=== PATIENT | female | born 1970 | race American Indian/Alaskan Native ===

== ENCOUNTER 2022-01-11 17:27 | Emergency (ER) | payer OTHER ==
[2022-01-12 05:53] VITALS: BP 142/83
== END 2022-01-13 07:48 | disposition left against medical advice (07) ==
LOC: ED 17:27
DX: E86.0 Dehydration (principal); Z53.21 Procedure and treatment not carried out due to patient leaving prior to being seen by health care provider

== ENCOUNTER 2022-01-13 00:05 | Emergency (ER) | payer SELFPAY ==
[2022-01-13 00:30] VITALS: BP 147/91
== END 2022-01-14 07:39 | disposition left against medical advice (07) ==
LOC: ED 01-14 00:05
DX: R42 Dizziness and giddiness (principal); R52 Pain, unspecified; R55 Syncope and collapse; Z53.21 Procedure and treatment not carried out due to patient leaving prior to being seen by health care provider

== ENCOUNTER 2022-02-01 21:07 | Emergency (ER) | payer SELFPAY ==
[2022-02-02 00:15] VITALS: BP 139/87
== END 2022-02-03 10:00 | disposition left against medical advice (07) ==
LOC: ED 21:07
DX: M54.2 Cervicalgia (principal); Z53.21 Procedure and treatment not carried out due to patient leaving prior to being seen by health care provider

== ENCOUNTER 2022-02-02 16:34 | Emergency (ER) | payer SELFPAY | END 2022-02-02 22:25 | disposition home or self-care (01) | LOC: ED 16:34 | DX: M54.2 Cervicalgia (principal); M54.9 Dorsalgia, unspecified; Z53.21 Procedure and treatment not carried out due to patient leaving prior to being seen by health care provider; W19.XXXA Unspecified fall, initial encounter; Y93.89 Activity, other specified; Y92.89 Other specified places as the place of occurrence of the external cause; Y99.8 Other external cause status ==

== ENCOUNTER 2022-03-05 08:17 | Emergency (ER) | payer SELFPAY ==
[2022-03-05 08:31] VITALS: BP 154/84
[2022-03-05 11:38] LABS: Bacteria,Urine 4+ /HPF (Negative)
[2022-03-05 12:43] LABS: Bilirubin,Urine Negative (Negative); Color,Urine Yellow (Yellow)
[2022-03-05 12:44] LABS: Blood,Urine 1+ (Negative)
--- NOTE | 2022-03-05 15:23 | Emergency Department Report ---
ED General Adult HPI - General Chief complaint: Abdominal Pain Stated complaint: BACK PAIN Time Seen by Provider: 03/05/22 14:02 Source: patient Mode of arrival: Ambulatory Limitations: No Limitations - History of Present Illness Initial comments: 51-year-old female with no significant past medical history reports to the ER with complaints of left flank pain for about 2 to 3 weeks with dysuria and urinary frequency. Patient denies history of kidney stones, patient denies blood in urine. Patient reports reports of pain 5 out of 10 and and does not want any pain medicine. Patient reports no other acute symptoms at this time. Patient reports that for like she is having a UTI. - Related Data Previous Rx's Medication Instructions Recorded Last Taken Type Nitrofurantoin [place]/M-Cryst 100 mg PO Q12HR 7 Days #14 capsule 03/05/22 Unknown Rx [Macrobid CAP] Allergies Allergy/AdvReac Type Severity Reaction Status Date / Time No Known Allergies Allergy Verified 01/13/22 00:30 ED Review of Systems ROS: Stated complaint: BACK PAIN Other details as noted in HPI Comment: All other systems reviewed and negative Constitutional: denies: chills, fever Eyes: denies: eye pain, eye discharge, vision change ENT: denies: ear pain, throat pain Respiratory: denies: cough, shortness of breath, wheezing Cardiovascular: denies: chest pain, palpitations Endocrine: no symptoms reported Gastrointestinal: other (Left flank pain). denies: abdominal pain, nausea, diarrhea Genitourinary: urgency, dysuria, frequency. denies: hematuria, discharge Musculoskeletal: denies: back pain, joint swelling, arthralgia Skin: denies: rash, lesions Neurological: denies: headache, weakness, paresthesias Psychiatric: denies: anxiety, depression Hematological/Lymphatic: denies: easy bleeding, easy bruising ED Past Medical Hx - Past Medical History Previous Medical History?: Yes Hx Hypertension: Yes Additional medical history: SPINE AND LUMABR STENOSI, DEGENERATIVE C1-C6, DEGENERATIVE DISC DISEASE - Surgical History Additional Surgical History: GALL BLADDER REMOVAL, 3 SPINE SURGERY, HYSTERECTOMY, ABDOMINAL SURGERY - Social History Smoking Status: Never Smoker - Medications Home Medications: Home Medications Medication Instructions Recorded Confirmed Last Taken Type Nitrofurantoin [place]/M-Cryst 100 mg PO Q12HR 7 Days #14 capsule 03/05/22 Unknown Rx [Macrobid CAP] ED Physical Exam - General Limitations: No Limitations General appearance: alert, in no apparent distress - Head Head exam: Present: atraumatic, normocephalic - Eye Eye exam: Present: normal appearance - ENT ENT exam: Present: mucous membranes moist - Neck Neck exam: Present: normal inspection - Respiratory Respiratory exam: Present: normal lung sounds bilaterally. Absent: respiratory distress - Cardiovascular Cardiovascular Exam: Present: regular rate, normal rhythm. Absent: systolic murmur, diastolic murmur, rubs, gallop - GI/Abdominal GI/Abdominal exam: Present: soft, normal bowel sounds, other (Left flank pain tenderness, no CVA tenderness noted.) - Extremities Exam Extremities exam: Present: normal inspection - Back Exam Back exam: Present: normal inspection - Neurological Exam Neurological exam: Present: alert, oriented X3 - Psychiatric Psychiatric exam: Present: normal affect, normal mood - Skin Skin exam: Present: warm, dry, intact, normal color. Absent: rash ED Course Vital Signs 03/05/22 08:27 Temperature 97.9 F Pulse Rate 73 Respiratory 14 Rate Blood Pressure 154/84 O2 Sat by Pulse 98 Oximetry ED Medical Decision Making - Medical Decision Making 51-year-old female past medical history hypertension reports to the ER left flank pain for about 2 to 3 weeks with dysuria increased urinary frequency. Patient reports she feels she is having a UTI. Patient denies any blood in her urine. Patient denies any history of kidney stones. On physical exam patient reports ports tenderness of the left flank area with palpitation. No CVA tenderness noted no abdominal pain reported or noted on physical exam. Patient has no temp. No concerns for kidney stones. No CT needed. Urinalysis is positive for nitrites, leukocytes, with 1+ blood. Patient to be diagnosed with urinary tract infection with hematuria. Patient to be started on oral antibiotics for UTI. Patient informed of her urinalysis result Patient agrees with plan of care verbalized understanding Patient informed that if symptoms are to get worse to report back to the ER. Patient to follow her primary care provider as needed. Vital Signs 03/05/22 08:27 Temperature 97.9 F Pulse Rate 73 Respiratory 14 Rate Blood Pressure 154/84 O2 Sat by Pulse 98 Oximetry Lab Results 03/05/22 Range/Units Unknown Urine Color Yellow (Yellow) Urine Turbidity Hazy (Clear) Urine pH 5.0 (5.0-7.0) Ur Specific [place] 1.030 (1.003-1.030) Urine Protein 30 mg/dl (Negative) mg/dL Urine Glucose (UA) Negative (Negative) mg/dL Urine Ketones Negative (Negative) mg/dL Urine Blood 1+ (Negative) Urine Nitrite Positive (Negative) Ur Reducing Substances Not Reportable Urine Bilirubin Negative (Negative) Urine Ictotest Not Reportable Urine Urobilinogen 0.0 (<2.0) mg/dL Ur Leukocyte Esterase 2+ (Negative) Urine WBC (Auto) 106.0 H (0.0-6.0) /HPF Urine RBC (Auto) 3.0 (0.0-6.0) /HPF U Epithel Cells (Auto) 13.0 (0-13.0) /HPF Urine Bacteria (Auto) 4+ (Negative) /HPF Critical care attestation.: If time is entered above; I have spent that time in minutes in the direct care of this critically ill patient, excluding procedure time. ED Disposition Clinical Impression: Acute UTI Disposition: 01 HOME / SELF CARE / HOMELESS Is pt being admited?: No Condition: Stable Instructions: Urinary Tract Infection, Adult, [id number], Antibiotic Medicine, Adult, Abdominal Pain (ED) Prescriptions: Nitrofurantoin [place]/M-Cryst [Macrobid CAP] 100 mg PO Q12HR 7 Days #14 capsule Referrals: PIERRE MCNAMARA MD [Primary Care Provider] - 3-5 Days [facility] [Outside] - 3-5 Days [facility] [Outside] - 3-5 Days [facility] [Outside] - 3-5 Days
== END 2022-03-05 18:46 | disposition home or self-care (01) ==
LOC: ED 08:17
DX: N39.0 Urinary tract infection, site not specified (principal); I10 Essential (primary) hypertension
CPT/HCPCS: 81001; 99283